=== PATIENT | male | born 1980 | race Asian ===

== ENCOUNTER 2022-01-09 07:13 | Emergency (ER) | payer BC ==
[~2022-01-09] VITALS: Ht 185.4 cm; Wt 150.0 kg
[2022-01-09 09:17] VITALS: BP 114/74
[2022-01-09 09:24] LABS: BASOPHILS % 0.5 % (0.0-2.0); EOSINOPHILS % 5.3 % (0.0-5.0); HEMATOCRIT. 43.5 % (42.0-52.0); HEMOGLOBIN. 14.5 g/dL (14.0-18.0); LYMPHOCYTES % 19.7 % (20.0-50.0); MEAN CORPUSCULAR HEMOGLOBIN 29.1 pg (28.0-32.0); MEAN CORPUSCULAR VOLUME 87.6 fL (80.0-94.0); MEAN PLATELET VOLUME 7.4 fl (7.4-10.4); MONOCYTES % 6.9 % (2.0-8.0); NEUTROPHILS % 67.6 % (40.0-76.0); PLATELET 308 x1000/uL (130-400); RED BLOOD CELL COUNT 4.96 mill/uL (4.7-6.1); RED CELL DISTRIBUTION WIDTH 14.1 % (11.6-14.6)
[2022-01-09 09:31] LABS: CHLORIDE 105 mEq/L (98-107)
== END 2022-01-09 18:50 | disposition home or self-care (01) ==
LOC: ER 07:39
DX: R07.89 Other chest pain (principal); R42 Dizziness and giddiness; I10 Essential (primary) hypertension; I45.4 Nonspecific intraventricular block
CPT/HCPCS: 36415; 71045; 80053; 83880; 84484; 85025; 93005; 99285